=== PATIENT | male | born 1985 | race African-American/Black ===

== ENCOUNTER 2025-01-12 19:17 | Observation (INO) | payer BC ==
[2025-01-12 19:23] VITALS: BMI 29.1
[2025-01-12] MEDS ORDERED: LIDOCAINE HCL 2% JELLY 6 ML TP ONE ×2 (19:54→22:43)
[2025-01-12] MEDS: LIDOCAINE VISCOUS 2% ORAL/TOP 100 ML BOTTLE MM ONE (20:01)
[2025-01-12 20:46] LABS: BASOPHILS # 0.02 x10^3/uL (0.01-0.08); HEMOGLOBIN 14.8 g/dL (13.7-17.5); MEAN CELL VOLUME 84.3 fl (79.0-92.2); MEAN PLT VOLUME 11.1 fl (9.4-12.4)
[2025-01-12 20:48] LABS: ABSOLUTE IMMATURE GRANULOCYTES 0.01 x10^3/uL (0.0-0.031); EOSINOPHIL % 1.8 % (0.8-7.0); EOSINOPHILS # 0.11 x10^3/uL (0.04-0.54); HEMATOCRIT 47.8 % (40.1-51.0); MONOCYTE # 0.51 x10^3/uL (0.30-0.82); MONOCYTE % 8.1 % (5.3-12.2); PLATELET COUNT 261 x10^3/uL (163-337); RDW 13.1 % (12.0-15.6)
[2025-01-12 21:08] LABS: POTASSIUM 4.5 mmol/L (3.5-5.1)
[2025-01-12 21:10] LABS: CALCIUM 9.8 mg/dL (8.5-10.1)
[2025-01-12 21:11] LABS: ALBUMIN 4.2 g/dl (3.4-5.0)
[2025-01-12 21:14] LABS: CREATININE 1.2 mg/dL (0.55-1.3)
[2025-01-12 21:15] LABS: BILIRUBIN,TOTAL 0.9 mg/dL (0.2-1); TOT PROT 7.5 g/dl (6.4-8.2)
[2025-01-12] MEDS ORDERED: MORPHINE SULFATE 2 MG/ML SYRINGE IVPUSH PRN (22:11)
[2025-01-12] MEDS ORDERED: oxyCODONE HCL 5 MG TABLET PO PRN (22:11)
[2025-01-12] MEDS ORDERED: ACETAMINOPHEN 325 MG TABLET (FP) PO PRN (22:11)
[2025-01-12] MEDS: ACETAMINOPHEN 500 MG TABLET (FP) PO ONE (22:21)
[2025-01-12] MEDS ORDERED: LIDOCAINE HCL 2% JELLY (30 ML/TUBE) TP PRN (22:22)
[2025-01-12] MEDS ORDERED: LIDOCAINE VISCOUS 2% ORAL/TOP 100 ML BOTTLE MM PRN (22:38)
[2025-01-12] MEDS: SODIUM CHLORIDE 1,000 ML IV SCH (22:55)
[2025-01-12] MEDS: LIDOCAINE HCL 2% JELLY (30 ML/TUBE) TP PRN (23:09)
[2025-01-13 08:45] LABS: HEMATOCRIT 45.7 % (40.1-51.0); MCHC 30.6 g/dl (32.3-36.5); MEAN CELL VOLUME 84.8 fl (79.0-92.2); MEAN PLT VOLUME 12.3 fl (9.4-12.4); PLATELET COUNT 234 x10^3/uL (163-337); RDW 13.2 % (12.0-15.6)
[2025-01-13 09:14] LABS: POTASSIUM 4.3 mmol/L (3.5-5.1)
[2025-01-13 09:16] LABS: ALBUMIN 3.8 g/dl (3.4-5.0); CALCIUM 9.7 mg/dL (8.5-10.1)
[2025-01-13 09:17] LABS: BLOOD UREA NITROGEN 8.9 mg/dL (7-18)
[2025-01-13 09:20] LABS: CREATININE 1.2 mg/dL (0.55-1.3)
[2025-01-13 09:21] LABS: BILIRUBIN,TOTAL 1.1 mg/dL (0.2-1); TOT PROT 6.7 g/dl (6.4-8.2)
[2025-01-13] MEDS: PHENYLEPHRINE HCL/COCOA BUTTER 1 EACH SUPP.RECT RC SCH ×2 (10:53→12:41)
[2025-01-13] MEDS: PEG 3350/NA SULF BICARB CL/KCL 4000 ML SOLN.RECON PO ONE (12:41)
[2025-01-13] MEDS: LIDOCAINE HCL 2% JELLY 6 ML TP PRN (20:00)
[2025-01-14] MEDS: LACTATED RINGERS SOLUTION 1,000 ML/1,000 ML INFUS.BAG IV SCH (00:30)
[2025-01-14 08:55] LABS: ABSOLUTE IMMATURE GRANULOCYTES 0.01 x10^3/uL (0.0-0.031); BASOPHILS # 0.02 x10^3/uL (0.01-0.08); EOSINOPHIL % 2.3 % (0.8-7.0); EOSINOPHILS # 0.11 x10^3/uL (0.04-0.54); HEMATOCRIT 43.9 % (40.1-51.0); HEMOGLOBIN 13.6 g/dL (13.7-17.5); MEAN CELL VOLUME 84.1 fl (79.0-92.2); MEAN PLT VOLUME 11.3 fl (9.4-12.4); MONOCYTE # 0.57 x10^3/uL (0.30-0.82); MONOCYTE % 11.7 % (5.3-12.2); PLATELET COUNT 239 x10^3/uL (163-337); RDW 13.1 % (12.0-15.6)
[2025-01-14 09:03] LABS: INR 1.28 (0.83-1.09)
[2025-01-14 09:15] LABS: POTASSIUM 3.8 mmol/L (3.5-5.1)
[2025-01-14 09:21] LABS: CALCIUM 9.9 mg/dL (8.5-10.1)
[2025-01-14 09:22] LABS: ALBUMIN 3.7 g/dl (3.4-5.0); BLOOD UREA NITROGEN 7.5 mg/dL (7-18)
[2025-01-14 09:25] LABS: CREATININE 1.1 mg/dL (0.55-1.3)
[2025-01-14 09:26] LABS: BILIRUBIN,TOTAL 1.5 mg/dL (0.2-1); TOT PROT 6.6 g/dl (6.4-8.2)
[2025-01-14 10:28] LABS: BILIRUBIN,DIRECT 0.3 mg/dL (0.0-0.2)
[2025-01-14 14:59] VITALS: RESP 18
[2025-01-14 19:00] VITALS: BP 135/90; PULSE 68; TEMP 98.1
== END 2025-01-14 19:57 | disposition home or self-care (01) ==
LOC: JER 19:17 → JERBED 20:35 → J6S 23:38
PROVIDERS: ADMIT Hospitalist; ATTEND Internal Medicine
PROC: 3E0337Z Introduction of Electrolytic and Water Balance Substance into Peripheral Vein, Percutaneous Approach (ICD-10-PCS; principal; 2025-01-12)
PROC: 0DJD8ZZ Inspection of Lower Intestinal Tract, Via Natural or Artificial Opening Endoscopic (ICD-10-PCS; 2025-01-12)
DX: K62.89 Other specified diseases of anus and rectum (principal); K92.1 Melena; K64.4 Residual hemorrhoidal skin tags
CPT/HCPCS: 36415; 71045-TC-FY; 80053; 82248; 85025; 85027; 85610; 86850; 86900; 86901; 93005; 93010; 99285-25; G0378